=== PATIENT | male | born 1950 | race Caucasian/White ===

== ENCOUNTER 2017-12-14 07:22 | Day surgery (SDC) | payer OTHER ==
[2017-12-14] MEDS ORDERED: PROPOFOL 20 ML ×2 (08:39→09:40)
== END 2017-12-14 13:10 | disposition home or self-care (01) ==
LOC: GIL 07:22
DX: Z12.11 Encounter for screening for malignant neoplasm of colon (principal); K64.4 Residual hemorrhoidal skin tags; E78.5 Hyperlipidemia, unspecified; I10 Essential (primary) hypertension; J44.9 Chronic obstructive pulmonary disease, unspecified; E66.01 Morbid (severe) obesity due to excess calories; Z68.41 Body mass index [BMI] 40.0-44.9, adult
CPT/HCPCS: 45378